=== PATIENT | female | born 1960 | race Hispanic/Latino ===

== ENCOUNTER → 2022-10-24 | Day surgery (SDC) | payer OTHER ==
[2022-10-22 10:49] LABS: CALCIUM 9.7 mg/dL (8.4-10.2); CREATININE, SERUM 0.77 mg/dL (0.57-1.11)
[~2022-10-24] MED LIST: ACETAMINOPHEN 1000 MG/100 ML 100 ML IV ONE; BUPIVACAINE 0.5%/EPI 30 ML SDV INJ ONE; CANDESARTAN-HC1 EACH; CEFAZOLIN SODIUM 2 GM ONE; DEXAMETHASONE SOD PHOS INJ 4 MG/ML SDV ONE; FENTANYL CITRATE/PF 100MCG/2 ML INJ ONE; FISH OIL 1,0001 EAC7; GLYCOPYRROLATE INJ 0.2 MG/ML VIAL ONE; KETOROLAC TROMETHAMINE 30 MG/ML VIAL ONE; LEVOTHYROXINE50 MCG PO; METFORMIN HCL500 MG PO; MIDAZOLAM HCL 2 MG/2 ML VIAL ONE; OMEPRAZOLE40 MG PO; ONDANSETRON HCL INJ 2MG/ML 2ML 2 MG/ML VIAL ONE; POTASSIUM; POVIDONE IODINE 0.05% 0.05 % ML PO ONE; PROPOFOL IV EMULSION 10 MG/ML 20 ML VIAL ONE; VERAPAMIL ER120 MG PO; VITAMIN B122500 MCG
[2022-10-24 09:32] VITALS: BP 109/56
== END | disposition home or self-care (01) ==
LOC: OR 06:17
PROVIDERS: ATTEND Specialist
DX: S83.262A Peripheral tear of lateral meniscus, current injury, left knee, initial encounter (principal); M17.12 Unilateral primary osteoarthritis, left knee; M23.42 Loose body in knee, left knee; M22.42 Chondromalacia patellae, left knee; I10 Essential (primary) hypertension; E11.9 Type 2 diabetes mellitus without complications; E03.9 Hypothyroidism, unspecified; K58.9 Irritable bowel syndrome, unspecified; E66.01 Morbid (severe) obesity due to excess calories; Z88.6 Allergy status to analgesic agent; X58.XXXA Exposure to other specified factors, initial encounter; Z01.810 Encounter for preprocedural cardiovascular examination; Z01.812 Encounter for preprocedural laboratory examination; Z79.84 Long term (current) use of oral hypoglycemic drugs; Z79.899 Other long term (current) drug therapy; Z68.32 Body mass index [BMI] 32.0-32.9, adult
CPT/HCPCS: 29881; 36415 ×2; 80048; 82948; 93005; J0131; J1100; J1885; J2250; J2405; J2704; J3010